=== PATIENT | male | born 1955 | race Caucasian/White ===

== ENCOUNTER 2019-08-03 13:36 | Outpatient (CLI) | payer BC, OTHER ==
--- NOTE | 2019-08-03 13:54 | RAD ---
EXAM: Two views chest PROVIDED CLINICAL HISTORY: Atherosclerosis of [place] coronary arteries. COMPARISON: 08/03/2006. FINDINGS: There been interval postsurgical changes related to CABG. Coronary artery stents overlie the cardiac silhouette. The cardiac silhouette and pulmonary vasculature are within normal limits. There is blunting of the left posterior and lateral costophrenic angles which may be related to pleural and pa renchymal scarring versus small left pleural effusion. There is question of a nodular density at the right lung base laterally which overlies the anterior sixth rib. Follow-up chest x-ray versus CT thorax may be helpful for further evaluation. The osseous structures have a normal appearance. IMPRESSION: 1. Subcentimeter nodular density overlying right lung base. This may represent a small calcified gran uloma versus pulmonary nodule, but this is difficult to further delineate. This was not seen on prior exam. Follow-up chest x-ray versus CT thorax is recommended. 2. Small left pleural effusion versus pleural and parenchymal scarring. 3. Evidence of CABG.
== END 2019-08-03 13:37 | disposition home or self-care (01) ==
LOC: RAD 13:36
PROVIDERS: ATTEND Thoracic Surgery (Cardiothoracic Vascular Surgery)
DX: I25.118 Atherosclerotic heart disease of native coronary artery with other forms of angina pectoris (principal); J98.4 Other disorders of lung; Z95.1 Presence of aortocoronary bypass graft
CPT/HCPCS: 71046

== ENCOUNTER 2019-09-28 15:02 | Outpatient (CLI) | payer BC ==
--- NOTE | 2019-09-28 15:29 | RAD ---
CHEST TWO VIEWS: HISTORY: Coronary artery disease. FINDINGS: The lungs appear clear. No infiltrate. Vascular markings within the normal range. Heart size within t he normal range. Postop sternotomy change. Osseous structures unremarkable. IMPRESSION: No acute process. POS: [facility]
== END 2019-09-28 15:03 | disposition home or self-care (01) ==
LOC: RAD 15:02
PROVIDERS: ATTEND Thoracic Surgery (Cardiothoracic Vascular Surgery)
DX: I25.118 Atherosclerotic heart disease of native coronary artery with other forms of angina pectoris (principal)
CPT/HCPCS: 71046

== ENCOUNTER 2019-11-10 14:08 | Outpatient (CLI) | payer BC ==
[~2019-11-10 14:08] MED LIST: Iopamidol 370 76% 100 ML VIAL ONE
--- NOTE | 2019-11-10 15:36 | CT ---
CT ANGIOGRAM NECK WITH CONTRAST 11/10/19 HISTORY: 64-year-old male with ICD-10: I65.29, carotid artery occlusion without infarction. COMPARISON: None available. TECHNIQUE: IV injection of 70 mL of Isovue 370. Arterial bolus chasing technique scan from aortopulmonic window to mid orbits. Coronal and sagittal 3D MIP reconstructions. FINDINGS: Brachiocephalic: No high grade stenosis. Right subclavian: No stenosis. Left subclavian: No significant stenosis. Right vertebral: Normal and slightly dominant. Left vertebral: Normal. Right common carotid: No high grade stenosis. Left common carotid: No high grade stenosis. Right internal carotid: Multifocal moderately calcified atherosclerotic plaque at bulb causing mild stenosis. No high grade stenosis. Atherosclerotic calcification causing mild stenosis at right caroti d siphon, incompletely imaged. Left internal carotid: In addition to moderate calcified plaque, there is also large noncalcified ath eromatous plaque at the carotid bulb, including origin, that decreases the cross-sectional area of th e lumen at the origin of left internal carotid or distal common carotid by 75%. Calcified plaque causing at least mild stenosis of left carotid siphon, incompletely imaged. IMPRESSION: Atherosclerotic plaque causing severe, 75% stenosis at the origin of the left internal carotid artery at the left carotid bulb. POS: [facility]
== END 2019-11-10 14:09 | disposition home or self-care (01) ==
LOC: CT 14:08
PROVIDERS: ATTEND Thoracic Surgery (Cardiothoracic Vascular Surgery)
DX: I65.29 Occlusion and stenosis of unspecified carotid artery (principal)
CPT/HCPCS: 70498; 82565; Q9967

== ENCOUNTER 2024-05-26 12:40 | Outpatient (CLI) | payer MEDICARE, BC | END 2024-05-26 12:41 | disposition home or self-care (01) | LOC: CT 12:40 | PROVIDERS: ATTEND Student in an Organized Health Care Education/Training Program | DX: I65.21 Occlusion and stenosis of right carotid artery (principal); Z98.890 Other specified postprocedural states | CPT/HCPCS: 70498; 82565 ==